=== PATIENT | female | born 1985 | race American Indian/Alaskan Native ===

== ENCOUNTER 2019-06-18 16:36 | Emergency (ER) | payer SELFPAY ==
[2019-06-18 17:26] VITALS: BP 118/89
--- NOTE | 2019-06-18 17:26 | Emergency Department Report ---
Blank Doc - Documentation Documentation: 33-year-old female that presents with URI symptoms. This initial assessment/diagnostic orders/clinical plan/treatment(s) is/are subject to change based on patient's health status, clinical progression and re- assessment by fellow clinical providers in the ED. Further treatment and workup at subsequent clinical providers discretion. Patient/guardians urged not to elope from the ED as their condition may be serious if not clinically assessed and managed. Initial orders include: 1- Patient sent to [facility] for further evaluation and treatment 2- CXR
== END 2019-06-18 22:11 | disposition left against medical advice (07) ==
LOC: ED 16:36
DX: R05 Cough (principal); Z53.21 Procedure and treatment not carried out due to patient leaving prior to being seen by health care provider

== ENCOUNTER 2019-08-08 07:10 | Emergency (ER) | payer SELFPAY ==
[2019-08-08 07:18] VITALS: BP 131/88
[2019-08-08] MEDS ORDERED: MORPHINE 4 MG/1 ML INJ IV ONE (08:38)
[2019-08-08] MEDS ORDERED: SODIUM CHLORIDE 0.9% 1000 ML 1,000 ML IV ONE (08:38)
[2019-08-08] MEDS ORDERED: ONDANSETRON 4 MG/2 ML INJ IV ONE (08:38)
--- NOTE | 2019-08-08 08:42 | Emergency Department Report ---
ED Abdominal Pain HPI - General Chief Complaint: Abdominal Pain Stated Complaint: LT SIDE PAIN Time Seen by Provider: 08/08/19 08:36 Source: patient Mode of arrival: Ambulatory Limitations: No Limitations - History of Present Illness Initial Comments: This is a 33-year-old female nontoxic, well nourished in appearance, no acute signs of distress presents to the ED with c/o of left flank pain with radiation to left sided abdominal area. Patient denies any n/v. Patient describes flank pain as cramping and aching with level of 3/10 diffuse. Patient denies chest pain, short of breath, fever, chills, headache, stiff neck, numbness or tingling. Patient stated has some diarrhea. Patient denies any recent travels. Patient denies any allergies or PMH. MD Complaint: flank pain -: days(s) Location: L flank Radiation: LUQ Migration to: no migration Severity: mild Severity scale (0 -10): 3 Quality: aching Consistency: constant Improves With: nothing Worsens With: nothing Associated Symptoms: denies other symptoms. denies: nausea, vomiting, diarrhea, fever, chills, constipation, dysuria, hematemesis, hematochezia, melena, hematuria, anorexia, syncope - Related Data Previous Rx's Medication Instructions Recorded Last Taken Type Acetaminophen/Codeine [Tylenol 1 tab PO Q6H PRN #12 tab 08/08/19 Unknown Rx /Codeine # 3 tab] Ondansetron [Zofran Odt] 4 mg PO Q8HR PRN #20 tab.rapdis 08/08/19 Unknown Rx Allergies Allergy/AdvReac Type Severity Reaction Status Date / Time No Known Allergies Allergy Unverified 06/18/19 16:41 ED Review of Systems ROS: Stated complaint: LT SIDE PAIN Other details as noted in HPI Constitutional: denies: chills, fever Eyes: denies: eye pain, eye discharge, vision change ENT: denies: ear pain, throat pain Respiratory: denies: cough, shortness of breath, wheezing Cardiovascular: denies: chest pain, palpitations Endocrine: no symptoms reported Gastrointestinal: abdominal pain, diarrhea. denies: nausea, vomiting, constipation, hematemesis Genitourinary: denies: urgency, dysuria, discharge Musculoskeletal: denies: back pain, joint swelling, arthralgia Skin: denies: rash, lesions Neurological: denies: headache, weakness, paresthesias Psychiatric: denies: anxiety, depression Hematological/Lymphatic: denies: easy bleeding, easy bruising ED Past Medical Hx - Past Medical History Previous Medical History?: No - Surgical History Past Surgical History?: No - Social History Smoking Status: Current Every Day Smoker Substance Use Type: None - Medications Home Medications: Home Medications Medication Instructions Recorded Confirmed Last Taken Type Acetaminophen/Codeine [Tylenol 1 tab PO Q6H PRN #12 tab 08/08/19 Unknown Rx /Codeine # 3 tab] Ondansetron [Zofran Odt] 4 mg PO Q8HR PRN #20 tab.rapdis 08/08/19 Unknown Rx ED Physical Exam - General Limitations: No Limitations General appearance: alert, in no apparent distress - Head Head exam: Present: atraumatic, normocephalic - Neck Neck exam: Present: normal inspection, full ROM. Absent: tenderness, lymphadenopathy - Respiratory Respiratory exam: Present: normal lung sounds bilaterally. Absent: respiratory distress, wheezes, rales, rhonchi, stridor, chest wall tenderness, accessory muscle use, decreased breath sounds, prolonged expiratory - Cardiovascular Cardiovascular Exam: Present: regular rate, normal rhythm, normal heart sounds. Absent: irregular rhythm, systolic murmur, diastolic murmur, rubs, gallop - GI/Abdominal GI/Abdominal exam: Present: soft, tenderness (LUQ), normal bowel sounds. Absent: distended, guarding, rebound, rigid, diminished bowel sounds, hyperactive bowel sounds, hypoactive bowel sounds, organomegaly, mass, bruit, pulsatile mass, hernia - Extremities Exam Extremities exam: Present: normal inspection, full ROM - Back Exam Back exam: Present: normal inspection, full ROM, CVA tenderness (L). Absent: tenderness, CVA tenderness (R), muscle spasm, paraspinal tenderness, vertebral tenderness, rash noted - Neurological Exam Neurological exam: Present: alert, oriented X3, normal gait - Psychiatric Psychiatric exam: Present: normal affect, normal mood - Skin Skin exam: Present: warm, dry, intact, normal color. Absent: rash ED Course Vital Signs 08/08/19 07:17 Temperature 98.4 F Pulse Rate 101 H Respiratory 18 Rate Blood Pressure 131/88 O2 Sat by Pulse 100 Oximetry - Reevaluation(s) Reevaluation #1: 08/08/19 08:45 Patient is speaking in full sentences with no signs of distress noted. ED Medical Decision Making - Lab Data Result diagrams: 08/08/19 08:43 08/08/19 08:43 - Medical Decision Making This is a 33-year-old female that presents with abdominal pain with ovarian cyst. Patient is stable and was examined by me. Negative signs of symptoms of appendicitis. Labs obtained. UA obtained. CT of abdomen obtained and dictated by the radiologist. Patient is notified of the report with no questions noted by the patient. Vital signs are stable prior to discharge. Patient received medical treatment in the ED which patient stated symptoms has resovled and subsided. Was instructed note to operate any machinery due to possible drowsiness and stated someone will drive the patient home. A by mouth challenge has been obtained and patient tolerated well with no nausea vomiting. Patient was also instructed to Follow-up with a primary care doctor in 3-5 days or if symptoms worsen and continue return to emergency room as soon as possible. At time of discharge, the patient does not seem toxic or ill in appearance. No acute signs of distress noted. Patient agrees to discharge treatment plan of care. No further questions noted by the patient. - Differential Diagnosis bowel obstruction, kidney stone, gastritis Critical care attestation.: If time is entered above; I have spent that time in minutes in the direct care of this critically ill patient, excluding procedure time. ED Disposition Clinical Impression: Ovarian mass Abdominal pain Qualifiers: Abdominal location: left upper quadrant Qualified Code(s): R10.12 - Left upper quadrant pain Disposition: DC-01 TO HOME OR SELFCARE Is pt being admited?: No Does the pt Need Aspirin: No Condition: Stable Instructions: Abdominal Pain (ED) Additional Instructions: Follow-up with a primary care and OBGYN doctor in 3-5 days or if symptoms worsen and continue return to emergency room as soon as possible. Prescriptions: Acetaminophen/Codeine [Tylenol /Codeine # 3 tab] 1 tab PO Q6H PRN #12 tab PRN Reason: Pain , Severe (7-10) Ondansetron [Zofran Odt] 4 mg PO Q8HR PRN #20 tab.rapdis PRN Reason: nausea Referrals: PRIMARY MD DENISE [Primary Care Provider] - 3-5 Days TYLER SPIVEY MD [Staff Physician] - 3-5 Days LIZBETH BROWN MD [Staff Physician] - 3-5 Days [facility] [Provider Group] - 3-5 Days Forms: Work/School Release Form(ED)
[2019-08-08 09:09] LABS: Basophils # (Auto) 0.1 K/mm3 (0.0-0.1); Basophils % (Auto) 0.7 % (0.0-1.8); Eosinophils % (Auto) 0.2 % (0.0-4.3); Hematocrit 39.4 % (30.3-42.9); Hemoglobin 13.2 gm/dl (10.1-14.3); Lymphocytes # (Auto) 2.2 K/mm3 (1.2-5.4); Lymphocytes % (Auto) 28.9 % (13.4-35.0); Mean Corpuscular HGB Conc 34 % (30-34); Mean Corpuscular Volume 97 fl (79-97); Monocytes # (Auto) 0.5 K/mm3 (0.0-0.8); Platelet Count 344 K/mm3 (140-440); Red Blood Count 4.06 M/mm3 (3.65-5.03); Red Cell Distribution Width 13.5 % (13.2-15.2)
[2019-08-08 09:25] LABS: Bacteria,Urine 1+ /HPF (Negative); Bilirubin,Urine NEG (Negative); Blood,Urine MOD (Negative); Color,Urine Yellow (Yellow); Mucus,Urine FEW /HPF; Protein,Urine <15 mg/dL mg/dL (Negative); Urobilinogen,Urine < 2.0 mg/dL (<2.0)
[2019-08-08 09:35] LABS: Alanine Aminotransferase 22 units/L (7-56); Albumin 4.6 g/dL (3.9-5); BUN/Creatinine Ratio 23; Blood Urea Nitrogen 9 mg/dL (7-17); Hemolysis Index 9
--- NOTE | 2019-08-08 10:41 | Cat Scan Report ---
CT ABDOMEN AND PELVIS WITHOUT CONTRAST HISTORY: Flank and abdominal pain. COMPARISON: None TECHNIQUE: Routine abdominal and pelvic CT exam performed without contrast. Lack of intravenous cont rast limits evaluation of the vascular and solid organs.. All CT scans at this location are performed using CT dose reduction for ALARA by means of automated exposure control. FINDINGS: CT ABDOMEN: Lung Bases: Clear. Liver: Normal. Biliary: Normal gallbladder and bile ducts. Spleen: Normal. Pancreas: Normal. Adrenals: Normal. Kidneys: Normal. No urinary calculus. The renal collecting systems and ureters are nondilated. Lymphatics: No lymphadenopathy. Vasculature: No significant abnormality. Bowel/Peritoneum: No significant abnormality. No free air. No free fluid. Normal appendix. CT PELVIC: : An enlarged left ovary measures 4.7 x 4.1 x 4.0 cm. The margins are indistinct and there is a hyp odense center. Single 5 mm calcification in the ovary. The uterus and right ovary are normal. Mild fr ee fluid in the pelvis. Normal rectum and sigmoid colon. Lymphatics: No lymphadenopathy. Osseous Structures: No aggressive appearing osseous lesions. Additional Findings: None IMPRESSION: 1. Left ovarian mass/cyst. The differential includes benign cyst and both have benign and malignant n eoplasms. 2. Normal uterus and right ovary. 3. Normal upper abdomen. Signer Name: Harvinder Roberson MD Signed: 08/08/2019 10:36 AM Workstation Name: [id number]
== END 2019-08-08 11:36 | disposition home or self-care (01) ==
LOC: ED 07:10
DX: N83.202 Unspecified ovarian cyst, left side (principal); R19.7 Diarrhea, unspecified; F17.200 Nicotine dependence, unspecified, uncomplicated; Z79.899 Other long term (current) drug therapy
CPT/HCPCS: 36415; 74176; 80053; 81001; 83690; 84703; 85025; 96361; 96374; 96375; 99284; J2270; J2405; J7030

== ENCOUNTER 2019-11-29 13:02 | Emergency (ER) | payer MEDICAID, OTHER ==
[2019-11-29] MEDS ORDERED: TETANUS,DIPH,PERTUSS(ACELL) VACCINE 0.5 ML SYRINGE IM ONE (14:37)
--- NOTE | 2019-11-29 14:53 | Emergency Department Report ---
ED Laceration HPI - HPI Chief Complaint: Laceration/Recheck/Suture Stated Complaint: LEFT HAND INJURY Time Seen by Provider: 11/29/19 14:00 Location: Upper Extremity Severity: mild Tetanus Status: Not up to Date Laceration Symptoms: Yes Pain, No Foreign Body Sensation, No Numbness, No Weakness ED Review of Systems ROS: Stated complaint: LEFT HAND INJURY Other details as noted in HPI Comment: All other systems reviewed and negative ED Past Medical Hx - Past Medical History Previous Medical History?: No - Surgical History Past Surgical History?: No - Social History Smoking Status: Current Every Day Smoker - Medications Home Medications: Home Medications Medication Instructions Recorded Confirmed Last Taken Type Acetaminophen/Codeine [Tylenol 1 tab PO Q6H PRN #12 tab 08/08/19 Unknown Rx /Codeine # 3 tab] Ondansetron [Zofran Odt] 4 mg PO Q8HR PRN #20 tab.rapdis 08/08/19 Unknown Rx cephALEXin [Keflex] 500 mg PO Q12HR #10 cap 11/29/19 Unknown Rx Laceration Physical Exam - Exam General: Vital signs noted. No distress. Alert and acting appropriately. Laceration Location: Upper Extremity Laceration Exam: Yes Normal Distal CMS, No Foreign Body, No Exposed Tendon, Vess el, or Nerve, No Tendon Injury Critical care attestation.: If time is entered above; I have spent that time in minutes in the direct care of this critically ill patient, excluding procedure time. ED Disposition Clinical Impression: Laceration of hand, Abrasion of hand Disposition: DC-01 TO HOME OR SELFCARE Is pt being admited?: No Does the pt Need Aspirin: No Instructions: Abrasion (ED) Additional Instructions: Make sure to follow up with the primary care physician as discussed. Take all your medications as you've been prescribed. If you have any worsening symptoms or develop new symptoms please return to ED immediately. Prescriptions: cephALEXin [Keflex] 500 mg PO Q12HR #10 cap Referrals: NATY CABRERA MD [Primary Care Provider] - 3-5 Days [facility] [Outside] - 3-5 Days [facility] [Outside] - 3-5 Days Forms: Work/School Release Form(ED) Time of Disposition: 15:24
[2019-11-29 17:13] VITALS: BP 139/93
== END 2019-11-29 17:12 | disposition home or self-care (01) ==
LOC: ED 13:02
DX: S61.412A Laceration without foreign body of left hand, initial encounter (principal); F17.200 Nicotine dependence, unspecified, uncomplicated; X58.XXXA Exposure to other specified factors, initial encounter; Y93.89 Activity, other specified; Y92.89 Other specified places as the place of occurrence of the external cause; Y99.8 Other external cause status
CPT/HCPCS: 90471; 90715; 99281

== ENCOUNTER 2020-04-18 12:59 | Emergency (ER) | payer SELFPAY ==
[2020-04-18 13:09] VITALS: BP 144/94
--- NOTE | 2020-04-18 14:49 | XRay Report ---
CHEST 2 VIEWS INDICATION: cough. COMPARISON: None FINDINGS: Support devices: None. Heart: Within normal limits. Lungs/pleura: No acute air space or interstitial disease. No pneumothorax. Additional findings: None. IMPRESSION: No acute findings. Signer Name: Srinivas Palomares Jr, MD Signed: 04/18/2020 2:44 PM Workstation Name: [id number]
--- NOTE | 2020-04-18 14:53 | Emergency Department Report ---
ED General Adult HPI - General Chief complaint: Upper Respiratory Infection Stated complaint: CHEST COLD Time Seen by Provider: 04/18/20 14:00 Source: patient Mode of arrival: Ambulatory Limitations: No Limitations - History of Present Illness Initial comments: 34-year-old -[place] female patient without significant past medical history presents with complaints of productive cough X 2 days. Patient also reports some body aches and congestion, but denies any chest pain, shortness of breath, nausea/vomiting/diarrhea, abdominal pain, or fever/chills/sweats. She states she has not tried any [id number]-cce-[id number] medication for symptoms. [place] and has high risk of COVID19 contact - Related Data Previous Rx's Medication Instructions Recorded Last Taken Type Acetaminophen/Codeine [Tylenol 1 tab PO Q6H PRN #12 tab 08/08/19 Unknown Rx /Codeine # 3 tab] Ondansetron [Zofran Odt] 4 mg PO Q8HR PRN #20 tab.rapdis 08/08/19 Unknown Rx cephALEXin [Keflex] 500 mg PO Q12HR #10 cap 11/29/19 Unknown Rx Erythromycin [Erythromycin Ophth 1 strip OS QID 5 Days #1 tube 01/12/20 Unknown Rx Oint] Allergies Allergy/AdvReac Type Severity Reaction Status Date / Time grape Allergy Shortness Verified 11/29/19 13:03 of Breath ED Review of Systems ROS: Stated complaint: CHEST COLD Other details as noted in HPI Constitutional: other (Body aches). denies: chills, fever, malaise ENT: denies: throat pain Respiratory: cough. denies: shortness of breath, SOB with exertion Cardiovascular: denies: chest pain Endocrine: denies: excessive sweating Gastrointestinal: denies: abdominal pain, nausea, vomiting, diarrhea Musculoskeletal: denies: back pain Skin: denies: rash, lesions Neurological: denies: weakness Hematological/Lymphatic: denies: swollen glands ED Past Medical Hx - Past Medical History Previous Medical History?: No - Surgical History Past Surgical History?: No - Social History Smoking Status: Current Every Day Smoker Substance Use Type: None - Medications Home Medications: Home Medications Medication Instructions Recorded Confirmed Last Taken Type Acetaminophen/Codeine [Tylenol 1 tab PO Q6H PRN #12 tab 08/08/19 Unknown Rx /Codeine # 3 tab] Ondansetron [Zofran Odt] 4 mg PO Q8HR PRN #20 tab.rapdis 08/08/19 Unknown Rx cephALEXin [Keflex] 500 mg PO Q12HR #10 cap 11/29/19 Unknown Rx Erythromycin [Erythromycin Ophth 1 strip OS QID 5 Days #1 tube 01/12/20 Unknown Rx Oint] ED Physical Exam - General Limitations: No Limitations General appearance: alert, in no apparent distress - Head Head exam: Present: atraumatic, normocephalic - Eye Eye exam: Present: normal appearance. Absent: scleral icterus - ENT ENT exam: Present: normal exam, normal orophraynx, mucous membranes moist - Neck Neck exam: Present: normal inspection, full ROM - Respiratory Respiratory exam: Present: normal lung sounds bilaterally - Cardiovascular Cardiovascular Exam: Present: regular rate, normal rhythm. Absent: systolic murmur, diastolic murmur, rubs, gallop - GI/Abdominal GI/Abdominal exam: Present: soft. Absent: distended, tenderness, guarding, rebound, rigid - Back Exam Back exam: Present: normal inspection - Neurological Exam Neurological exam: Present: alert, oriented X3 - Psychiatric Psychiatric exam: Present: normal affect, normal mood - Skin Skin exam: Present: warm, dry, intact, normal color. Absent: rash, cyanosis, diaphoretic, petechiae, ecchymosis ED Course Vital Signs 04/18/20 13:06 Temperature 97.9 F Pulse Rate 92 H Respiratory 16 Rate Blood Pressure 144/94 O2 Sat by Pulse 97 Oximetry ED Medical Decision Making - Radiology Data Radiology results: report reviewed CHEST 2 VIEWS INDICATION: cough. COMPARISON: None FINDINGS: Support devices: None. Heart: Within normal limits. Lungs/pleura: No acute air space or interstitial disease. No pneumothorax. Additional findings: None. IMPRESSION: No acute findings. - Medical Decision Making Patient here with productive cough x2 days. Vitals are normal, however [place] and is at increased risk of COVID-19 contact. Chest x- ray is negative for any acute abnormalities. Her lungs are clear on exam and she is well-appearing and stable for discharge home. Recommend patient get outpatient COVID testing and self quarantine until her results are back. Patient was provided with COVID testing facility list. Also recommend follow-up with primary care. Strict return precautions were discussed in detail patient verbalized understanding. OTC medications for symptomatic treatment recommended along with vitamin C and zinc Critical care attestation.: If time is entered above; I have spent that time in minutes in the direct care of this critically ill patient, excluding procedure time. ED Disposition Clinical Impression: Cough, Common cold virus Disposition: DC-01 TO HOME OR SELFCARE Is pt being admited?: No Condition: Stable Instructions: Cold Symptoms (ED), COVID-19 Referrals: PRIMARY CARE, [Primary Care Provider] - 3-5 Days Forms: Work/School Release Form(ED)
== END 2020-04-18 15:59 | disposition home or self-care (01) ==
LOC: ED 12:59
DX: J00 Acute nasopharyngitis [common cold] (principal); F17.200 Nicotine dependence, unspecified, uncomplicated; Z79.899 Other long term (current) drug therapy; Z91.018 Allergy to other foods
CPT/HCPCS: 71046; 99283

== ENCOUNTER 2020-08-05 10:14 | Emergency (ER) | payer SELFPAY ==
[2020-08-05 10:51] VITALS: BP 151/95
--- NOTE | 2020-08-05 12:01 | Emergency Department Report ---
ED ENT HPI - General Chief complaint: Dental/Oral Stated complaint: LEFT EYE IRRITATION Time Seen by Provider: 08/05/20 11:53 Source: patient Mode of arrival: Ambulatory Limitations: No Limitations - History of Present Illness Initial comments: 34-year-old F [place] female past medical history of tobacco abuse presents emerge department complaining of a near 1 week history of progressively worsening since sinus infection and dental pain of an unknown etiology which has been causing her some issues sleeping the last couple days. She reports a dull throbbing pain which is spontaneous with no known provocative factors. She reports no fevers, chills, sweats no shortness of breath no hemoptysis no hematemesis no diarrhea no constipation Severity: moderate Quality: dull Consistency: constant Improves with: none Worsens with: none Context- Dental: poor dental care Associated Symptoms: toothache, sore throat - Related Data Previous Rx's Medication Instructions Recorded Last Taken Type Acetaminophen/Codeine [Tylenol 1 tab PO Q6H PRN #12 tab 08/08/19 Unknown Rx /Codeine # 3 tab] Ondansetron [Zofran Odt] 4 mg PO Q8HR PRN #20 tab.rapdis 08/08/19 Unknown Rx cephALEXin [Keflex] 500 mg PO Q12HR #10 cap 11/29/19 Unknown Rx Erythromycin [Erythromycin Ophth 1 strip OS QID 5 Days #1 tube 01/12/20 Unknown Rx Oint] Amoxicillin/Potassium Clav 1 each PO BID #20 tablet 08/05/20 Unknown Rx [Augmentin 875-125 Tablet] Fluticasone [Flonase] 1 spray NS QDAY #7 bottle 08/05/20 Unknown Rx Ketorolac [Toradol] 10 mg PO Q6H PRN #20 tablet 08/05/20 Unknown Rx Allergies Allergy/AdvReac Type Severity Reaction Status Date / Time grape Allergy Shortness Verified 11/29/19 13:03 of Breath ED Dental HPI - General Chief complaint: Dental/Oral Stated complaint: LEFT EYE IRRITATION Time Seen by Provider: 08/05/20 11:53 Source: patient Mode of arrival: Ambulatory Limitations: No Limitations - Related Data Previous Rx's Medication Instructions Recorded Last Taken Type Acetaminophen/Codeine [Tylenol 1 tab PO Q6H PRN #12 tab 08/08/19 Unknown Rx /Codeine # 3 tab] Ondansetron [Zofran Odt] 4 mg PO Q8HR PRN #20 tab.rapdis 08/08/19 Unknown Rx cephALEXin [Keflex] 500 mg PO Q12HR #10 cap 11/29/19 Unknown Rx Erythromycin [Erythromycin Ophth 1 strip OS QID 5 Days #1 tube 01/12/20 Unknown Rx Oint] Amoxicillin/Potassium Clav 1 each PO BID #20 tablet 08/05/20 Unknown Rx [Augmentin 875-125 Tablet] Fluticasone [Flonase] 1 spray NS QDAY #7 bottle 08/05/20 Unknown Rx Ketorolac [Toradol] 10 mg PO Q6H PRN #20 tablet 08/05/20 Unknown Rx Allergies Allergy/AdvReac Type Severity Reaction Status Date / Time grape Allergy Shortness Verified 11/29/19 13:03 of Breath ED Review of Systems ROS: Stated complaint: LEFT EYE IRRITATION Other details as noted in HPI Comment: All other systems reviewed and negative ED Past Medical Hx - Past Medical History Previous Medical History?: No - Surgical History Past Surgical History?: No - Social History Smoking Status: Current Every Day Smoker Substance Use Type: None - Medications Home Medications: Home Medications Medication Instructions Recorded Confirmed Last Taken Type Acetaminophen/Codeine [Tylenol 1 tab PO Q6H PRN #12 tab 08/08/19 Unknown Rx /Codeine # 3 tab] Ondansetron [Zofran Odt] 4 mg PO Q8HR PRN #20 tab.rapdis 08/08/19 Unknown Rx cephALEXin [Keflex] 500 mg PO Q12HR #10 cap 11/29/19 Unknown Rx Erythromycin [Erythromycin Ophth 1 strip OS QID 5 Days #1 tube 01/12/20 Unknown Rx Oint] Amoxicillin/Potassium Clav 1 each PO BID #20 tablet 08/05/20 Unknown Rx [Augmentin 875-125 Tablet] Fluticasone [Flonase] 1 spray NS QDAY #7 bottle 08/05/20 Unknown Rx Ketorolac [Toradol] 10 mg PO Q6H PRN #20 tablet 08/05/20 Unknown Rx ED Physical Exam - General Limitations: No Limitations General appearance: alert, in no apparent distress - Head Head exam: Present: atraumatic, normocephalic - Eye Eye exam: Present: normal appearance, PERRL, EOMI Pupils: Present: normal accommodation - ENT ENT exam: Present: normal exam, mucous membranes moist - Neck Neck exam: Present: normal inspection, full ROM - Respiratory Respiratory exam: Present: normal lung sounds bilaterally. Absent: respiratory distress, wheezes, rales, chest wall tenderness, accessory muscle use - Cardiovascular Cardiovascular Exam: Present: regular rate, normal rhythm. Absent: systolic murmur, diastolic murmur, rubs, gallop - GI/Abdominal GI/Abdominal exam: Present: soft, normal bowel sounds. Absent: tenderness, guarding - Extremities Exam Extremities exam: Present: normal inspection - Back Exam Back exam: Present: normal inspection - Neurological Exam Neurological exam: Present: alert, oriented X3 - Psychiatric Psychiatric exam: Present: normal affect, normal mood - Skin Skin exam: Present: warm, dry, intact, normal color. Absent: rash ED Course Vital Signs 08/05/20 10:49 Temperature 98.0 F Pulse Rate 85 Respiratory 20 Rate Blood Pressure 151/95 O2 Sat by Pulse 100 Oximetry Critical care attestation.: If time is entered above; I have spent that time in minutes in the direct care of this critically ill patient, excluding procedure time. ED Disposition Clinical Impression: Dentalgia, Sinusitis Disposition: DC-01 TO HOME OR SELFCARE Is pt being admited?: No Does the pt Need Aspirin: No Condition: Stable Instructions: Sinusitis, Adult, [id number], Sinusitis, Adult, Diet and Dental Disease Prescriptions: Amoxicillin/Potassium Clav [Augmentin 875-125 Tablet] 1 each PO BID #20 tablet Fluticasone [Flonase] 1 spray NS QDAY #7 bottle Ketorolac [Toradol] 10 mg PO Q6H PRN #20 tablet PRN Reason: Pain Referrals: PRIMARY CARE,MD [Primary Care Provider] - 3-5 Days [facility] [Provider Group] - 3-5 Days
== END 2020-08-05 12:33 | disposition home or self-care (01) ==
LOC: ED 10:14
DX: J32.9 Chronic sinusitis, unspecified (principal); K08.89 Other specified disorders of teeth and supporting structures; F17.200 Nicotine dependence, unspecified, uncomplicated; Z79.899 Other long term (current) drug therapy; Z88.8 Allergy status to other drugs, medicaments and biological substances
CPT/HCPCS: 99282

== ENCOUNTER 2020-12-07 11:04 | Emergency (ER) | payer SELFPAY ==
[2020-12-07 11:13] VITALS: BP 147/101
--- NOTE | 2020-12-07 11:44 | Emergency Department Report ---
ED Extremity Problem HPI - General Chief complaint: Extremity Injury, Lower Stated complaint: R KNEE PAIN Time Seen by Provider: 12/07/20 11:37 Source: patient Mode of arrival: Ambulatory Limitations: No Limitations - History of Present Illness Initial comments: Is a pleasant 35-year-old female who presents to the ER with a chief complaint of right knee pain. Patient reports 1 week ago she almost fell and kenia her knee and has been having pain since. She denies any injury since but reports yesterday while at work she had having increasing pain especially when she ambulates. She denies any edema, fever, chills, night sweats, headache, dizziness, or vision, nausea,, diarrhea, chest pain or shortness of breath, weakness or any other associated symptoms. - Related Data Previous Rx's Medication Instructions Recorded Last Taken Type Acetaminophen/Codeine [Tylenol 1 tab PO Q6H PRN #12 tab 08/08/19 Unknown Rx /Codeine # 3 tab] Ondansetron [Zofran Odt] 4 mg PO Q8HR PRN #20 tab.rapdis 08/08/19 Unknown Rx cephALEXin [Keflex] 500 mg PO Q12HR #10 cap 11/29/19 Unknown Rx Erythromycin [Erythromycin Ophth 1 strip OS QID 5 Days #1 tube 01/12/20 Unknown Rx Oint] Amoxicillin/Potassium Clav 1 each PO BID #20 tablet 08/05/20 Unknown Rx [Augmentin 875-125 Tablet] Fluticasone [Flonase] 1 spray NS QDAY #7 bottle 08/05/20 Unknown Rx Ketorolac [Toradol] 10 mg PO Q6H PRN #20 tablet 08/05/20 Unknown Rx Naproxen 500 mg PO BID #20 tablet 12/07/20 Unknown Rx Allergies Allergy/AdvReac Type Severity Reaction Status Date / Time grape Allergy Shortness Verified 11/29/19 13:03 of Breath ED Review of Systems ROS: Stated complaint: R KNEE PAIN Other details as noted in HPI Comment: All other systems reviewed and negative Constitutional: denies: chills, fever Eyes: denies: eye pain, eye discharge, vision change ENT: denies: ear pain, throat pain Respiratory: denies: cough, shortness of breath, wheezing Cardiovascular: denies: chest pain, palpitations Endocrine: no symptoms reported Gastrointestinal: denies: abdominal pain, nausea, diarrhea Genitourinary: denies: urgency, dysuria, discharge Musculoskeletal: as per HPI, arthralgia. denies: back pain, joint swelling Skin: denies: rash, lesions Neurological: denies: headache, weakness, paresthesias Psychiatric: denies: anxiety, depression Hematological/Lymphatic: denies: easy bleeding, easy bruising ED Past Medical Hx - Past Medical History Previous Medical History?: No - Surgical History Past Surgical History?: No - Social History Smoking Status: Current Every Day Smoker Substance Use Type: Alcohol - Medications Home Medications: Home Medications Medication Instructions Recorded Confirmed Last Taken Type Acetaminophen/Codeine [Tylenol 1 tab PO Q6H PRN #12 tab 08/08/19 Unknown Rx /Codeine # 3 tab] Ondansetron [Zofran Odt] 4 mg PO Q8HR PRN #20 tab.rapdis 08/08/19 Unknown Rx cephALEXin [Keflex] 500 mg PO Q12HR #10 cap 11/29/19 Unknown Rx Erythromycin [Erythromycin Ophth 1 strip OS QID 5 Days #1 tube 01/12/20 Unknown Rx Oint] Amoxicillin/Potassium Clav 1 each PO BID #20 tablet 08/05/20 Unknown Rx [Augmentin 875-125 Tablet] Fluticasone [Flonase] 1 spray NS QDAY #7 bottle 08/05/20 Unknown Rx Ketorolac [Toradol] 10 mg PO Q6H PRN #20 tablet 08/05/20 Unknown Rx Naproxen 500 mg PO BID #20 tablet 12/07/20 Unknown Rx ED Physical Exam - General Limitations: No Limitations General appearance: alert, in no apparent distress - Head Head exam: Present: atraumatic, normocephalic - Eye Eye exam: Present: normal appearance, PERRL, EOMI Pupils: Present: normal accommodation - ENT ENT exam: Present: normal exam, normal orophraynx, mucous membranes moist - Neck Neck exam: Present: normal inspection, full ROM. Absent: tenderness, meningismus - Respiratory Respiratory exam: Present: normal lung sounds bilaterally. Absent: respiratory distress, wheezes, rales, rhonchi, stridor - Cardiovascular Cardiovascular Exam: Present: regular rate, normal rhythm, normal heart sounds. Absent: systolic murmur, diastolic murmur, rubs, gallop - GI/Abdominal GI/Abdominal exam: Present: soft, normal bowel sounds. Absent: distended, tenderness, guarding, rebound, rigid - Extremities Exam Extremities exam: Present: normal inspection, full ROM, tenderness (Pain to the anterior right knee, no deformity, no effusion. Negative varus/valgus strain, negative anterior drawer sign, negatie des sign bilaterally, normal DP/PT pulses ), normal capillary refill. Absent: calf tenderness - Back Exam Back exam: Present: normal inspection, full ROM. Absent: tenderness, CVA tenderness (R), CVA tenderness (L) - Neurological Exam Neurological exam: Present: alert, oriented X3, normal gait - Psychiatric Psychiatric exam: Present: normal affect, normal mood - Skin Skin exam: Present: warm, dry, intact, normal color. Absent: rash ED Course Vital Signs 12/07/20 11:07 Temperature 98.6 F Pulse Rate 104 H Respiratory 18 Rate Blood Pressure 147/101 O2 Sat by Pulse 97 Oximetry - Reevaluation(s) Reevaluation #1: 12/07/20 11:44 She is a low risk by Wells criteria, no posterior calf tenderness, negative Homans' sign bilaterally and normal DP and PT pulses making this patient for DVT unlikely at this time. I did order an x-ray due to her bony tenderness on the anterior knee. She had full active range of motion and neurovascular exam was unremarkable. ED Medical Decision Making - Radiology Data Radiology results: report reviewed [address] [address] XRay Report Signed Patient: GERARD DASH MR# : [id number] : 1985 Acct:[id number] Age/Sex: 35 / F ADM Date: 12/07/20 Loc: ED Attending Dr: Ordering Physician: PAT LEONG Date of Service: 12/07/20 Procedure(s): XR knee 3V RT Accession Number(s): [id number] cc: PAT LEONG Fluoro Time In Minutes: RIGHT KNEE 3 VIEWS 1154 INDICATION: pain after fall COMPARISON: None available. FINDINGS: No fractures or dislocations are seen. Small density on 2 views only near the tibia is probably artifactual. No definite joint effusion is seen. Signer Name: Sergo Salvador MD Signed: 12/07/2020 12:36 PM Workstation Name: [id number] Transcribed By: GJ Dictated By: Sergo Salvador MD Electronically Authenticated By: Sergo Salvador MD Signed Date/Time: 12/07/20 1236 DD/ 1234 - Medical Decision Making X-ray is unremarkable. Patient is a low risk by Wells criteria for DVT and no posterior calf tenderness and a negative Homans' sign making this unlikely. We will treat the patient with anti-inflammatories and outpatient follow-up with orthopedics. She was instructed to return to the ER with any change or worsening symptoms. She verbalized understand the diagnosis, treatment plan and follow-up instructions and all her questions were answered. - Differential Diagnosis Strain, sprain, fracture Critical care attestation.: If time is entered above; I have spent that time in minutes in the direct care of this critically ill patient, excluding procedure time. ED Disposition Clinical Impression: Right knee sprain Qualifiers: Encounter type: initial encounter Involved ligament of knee: other ligament Qualified Code(s): S83.8X1A - Sprain of other specified parts of right knee, initial encounter Disposition: DC-01 TO HOME OR SELFCARE Is pt being admited?: No Condition: Stable Instructions: Knee Sprain, Adult, [id number] Prescriptions: Naproxen 500 mg PO BID #20 tablet Referrals: MECHELLE DRAKE MD [Staff Physician] - 3-5 Days Forms: Work/School Release Form(ED) Time of Disposition: 12:54
--- NOTE | 2020-12-07 12:41 | XRay Report ---
RIGHT KNEE 3 VIEWS 1154 INDICATION: pain after fall COMPARISON: None available. FINDINGS: No fractures or dislocations are seen. Small density on 2 views only near the tibia is prob ably artifactual. No definite joint effusion is seen. Signer Name: Sergo Salvador MD Signed: 12/07/2020 12:36 PM Workstation Name: [id number]
== END 2020-12-07 13:55 | disposition home or self-care (01) ==
LOC: ED 11:04
DX: S83.8X1A Sprain of other specified parts of right knee, initial encounter (principal); F17.200 Nicotine dependence, unspecified, uncomplicated; Z79.899 Other long term (current) drug therapy; Z91.018 Allergy to other foods; W18.30XA Fall on same level, unspecified, initial encounter; Y93.89 Activity, other specified; Y92.89 Other specified places as the place of occurrence of the external cause; Y99.8 Other external cause status

== ENCOUNTER 2021-04-24 15:26 | Emergency (ER) | payer OTHER ==
[2021-04-24 17:18] VITALS: BP 137/81
--- NOTE | 2021-04-24 21:43 | Emergency Department Report ---
- General Chief Complaint: Dyspnea/Respdistress Stated Complaint: NOT FEELING WELL, COLD FOR COUPLE WKS PUI?: No Time Seen by Provider: 04/24/21 21:38 Source: patient Mode of arrival: Ambulatory Limitations: No Limitations - History of Present Illness Initial Comments: CC: I think I need an inhaler. HPI: This is a 35-year-old female with history of tobacco dependence who presents with cough for 3 weeks. She was exposed to rain and a sick contact. Productive cough with yellow sputum. She also has had intermittent wheezing. She does use inhaler on previous occasion for bronchitis. She denies fever, headache, sore throat, body aches, loss of taste or smell. MD Complaint: cough, nasal congestion -: Gradual, week(s) (3 weeks) Severity: mild Consistency: constant Improves With: nothing Worsens With: nothing Associated Symptoms: other (Nasal congestion, wheezing) - Related Data Previous Rx's Medication Instructions Recorded Last Taken Type Acetaminophen/Codeine [Tylenol 1 tab PO Q6H PRN #12 tab 08/08/19 Unknown Rx /Codeine # 3 tab] Ondansetron [Zofran Odt] 4 mg PO Q8HR PRN #20 tab.rapdis 08/08/19 Unknown Rx cephALEXin [Keflex] 500 mg PO Q12HR #10 cap 11/29/19 Unknown Rx Erythromycin [Erythromycin Ophth 1 strip OS QID 5 Days #1 tube 01/12/20 Unknown Rx Oint] Amoxicillin/Potassium Clav 1 each PO BID #20 tablet 08/05/20 Unknown Rx [Augmentin 875-125 Tablet] Fluticasone [Flonase] 1 spray NS QDAY #7 bottle 08/05/20 Unknown Rx Ketorolac [Toradol] 10 mg PO Q6H PRN #20 tablet 08/05/20 Unknown Rx Naproxen 500 mg PO BID #20 tablet 12/07/20 Unknown Rx Albuterol Mdi (or & Nicu Only) 2 puff IH QID PRN #8.5 gram 04/24/21 Unknown Rx [ProAir HFA Inhaler] Doxycycline Hyclate [Doxycycline 100 mg PO Q12HR 7 Days #14 tab 04/24/21 Unknown Rx Hyclate TAB] Prednisone [predniSONE 10 mg 10 mg PO .TAPER #1 tab.ds.pk 04/24/21 Unknown Rx (6-Day Pack, 21 Tabs)] Allergies Allergy/AdvReac Type Severity Reaction Status Date / Time grape Allergy Shortness Verified 11/29/19 13:03 of Breath ED Review of Systems ROS: Stated complaint: NOT FEELING WELL, COLD FOR COUPLE WKS Other details as noted in HPI Comment: All other systems reviewed and negative Constitutional: denies: chills, fever, malaise Respiratory: cough, wheezing Cardiovascular: denies: chest pain Gastrointestinal: denies: abdominal pain, vomiting ED Past Medical Hx - Past Medical History Previous Medical History?: No - Surgical History Past Surgical History?: No - Family History Family history: no significant - Social History Smoking Status: Current Every Day Smoker Substance Use Type: Alcohol - Medications Home Medications: Home Medications Medication Instructions Recorded Confirmed Last Taken Type Acetaminophen/Codeine [Tylenol 1 tab PO Q6H PRN #12 tab 08/08/19 Unknown Rx /Codeine # 3 tab] Ondansetron [Zofran Odt] 4 mg PO Q8HR PRN #20 tab.rapdis 08/08/19 Unknown Rx cephALEXin [Keflex] 500 mg PO Q12HR #10 cap 11/29/19 Unknown Rx Erythromycin [Erythromycin Ophth 1 strip OS QID 5 Days #1 tube 01/12/20 Unknown Rx Oint] Amoxicillin/Potassium Clav 1 each PO BID #20 tablet 08/05/20 Unknown Rx [Augmentin 875-125 Tablet] Fluticasone [Flonase] 1 spray NS QDAY #7 bottle 08/05/20 Unknown Rx Ketorolac [Toradol] 10 mg PO Q6H PRN #20 tablet 08/05/20 Unknown Rx Naproxen 500 mg PO BID #20 tablet 12/07/20 Unknown Rx Albuterol Mdi (or & Nicu Only) 2 puff IH QID PRN #8.5 gram 04/24/21 Unknown Rx [ProAir HFA Inhaler] Doxycycline Hyclate [Doxycycline 100 mg PO Q12HR 7 Days #14 tab 04/24/21 Unknown Rx Hyclate TAB] Prednisone [predniSONE 10 mg 10 mg PO .TAPER #1 tab.ds.pk 04/24/21 Unknown Rx (6-Day Pack, 21 Tabs)] ED Physical Exam - General Limitations: No Limitations General appearance: alert, in no apparent distress, other (Frequent cough no acute distress steady normal gait speaking full sentences without effort) - Head Head exam: Present: atraumatic, normocephalic - Eye Eye exam: Present: normal appearance - ENT ENT exam: Present: mucous membranes moist - Neck Neck exam: Present: normal inspection - Respiratory Respiratory exam: Present: normal lung sounds bilaterally. Absent: respiratory distress, wheezes, rales, rhonchi, chest wall tenderness, accessory muscle use, decreased breath sounds, prolonged expiratory - Cardiovascular Cardiovascular Exam: Present: regular rate, normal rhythm, normal heart sounds. Absent: systolic murmur, diastolic murmur, rubs, gallop - GI/Abdominal GI/Abdominal exam: Present: soft, normal bowel sounds. Absent: distended, tenderness, guarding, rebound - Extremities Exam Extremities exam: Present: normal inspection - Back Exam Back exam: Present: normal inspection - Neurological Exam Neurological exam: Present: alert, oriented X3 - Psychiatric Psychiatric exam: Present: normal affect, normal mood - Skin Skin exam: Present: warm, dry, intact, normal color. Absent: rash ED Course Vital Signs 04/24/21 17:18 Temperature 98.8 F Pulse Rate 109 H Respiratory 18 Rate Blood Pressure 137/81 [Right] O2 Sat by Pulse 100 Oximetry ED Medical Decision Making - Medical Decision Making Acute bronchitis: Considering symptoms for at least 3 weeks and tobacco abuse, antibiotics are indicated. I prescribed doxycycline, albuterol MDI, prednisone taper. Referred to outpatient internal medicine physician. Critical care attestation.: If time is entered above; I have spent that time in minutes in the direct care of this critically ill patient, excluding procedure time. ED Disposition Clinical Impression: Acute bronchitis, Tobacco dependence Disposition: 01 HOME / SELF CARE / HOMELESS Is pt being admited?: No Does the pt Need Aspirin: No Condition: Stable Instructions: Acute Bronchitis (ED), Acute Bronchitis, Adult, [id number], Josue ps to Quit Smoking, [id number] Prescriptions: Doxycycline Hyclate [Doxycycline Hyclate TAB] 100 mg PO Q12HR 7 Days #14 tab Prednisone [predniSONE 10 mg (6-Day Pack, 21 Tabs)] 10 mg PO .TAPER #1 tab.ds.pk Albuterol Mdi (or & Nicu Only) [ProAir HFA Inhaler] 2 puff IH QID PRN #8.5 gram PRN Reason: Shortness Of Breath Forms: Work/School Release Form(ED)
== END 2021-04-24 21:45 | disposition home or self-care (01) ==
LOC: ED 15:26
DX: J20.9 Acute bronchitis, unspecified (principal); F17.200 Nicotine dependence, unspecified, uncomplicated; Z91.018 Allergy to other foods; Z79.899 Other long term (current) drug therapy
CPT/HCPCS: 99281

== ENCOUNTER 2021-11-28 12:55 | Emergency (ER) | payer SELFPAY ==
[2021-11-28 13:40] VITALS: BP 137/86
--- NOTE | 2021-11-28 14:11 | Emergency Department Report ---
ED ENT HPI - General Chief complaint: Dental/Oral Stated complaint: DENTAL PAIN Time Seen by Provider: 11/28/21 13:18 Source: patient Mode of arrival: Ambulatory Limitations: No Limitations - History of Present Illness Initial comments: CC: "It's my wisdom tooth." HPI: This is a 36-year-old female with no significant past medical history who presents with an her right lower wisdom tooth. Mild to moderate in pain. Denies trouble with swallowing. Denies trouble with breathing. No fever. MD complaint: tooth pain -: Gradual, days(s) (Several days) Location: tooth # (32) Severity: moderate Consistency: constant Improves with: none Worsens with: none Context- Dental: history of dental caries - Related Data Previous Rx's Medication Instructions Recorded Last Taken Type Acetaminophen/Codeine [Tylenol 1 tab PO Q6H PRN #12 tab 08/08/19 Unknown Rx /Codeine # 3 tab] Ondansetron [Zofran Odt] 4 mg PO Q8HR PRN #20 tab.rapdis 08/08/19 Unknown Rx cephALEXin [Keflex] 500 mg PO Q12HR #10 cap 11/29/19 Unknown Rx Erythromycin [Erythromycin Ophth 1 strip OS QID 5 Days #1 tube 01/12/20 Unknown Rx Oint] Amoxicillin/Potassium Clav 1 each PO BID #20 tablet 08/05/20 Unknown Rx [Augmentin 875-125 Tablet] Fluticasone [Flonase] 1 spray NS QDAY #7 bottle 08/05/20 Unknown Rx Ketorolac [Toradol] 10 mg PO Q6H PRN #20 tablet 08/05/20 Unknown Rx Naproxen 500 mg PO BID #20 tablet 12/07/20 Unknown Rx Albuterol Mdi (or & Nicu Only) 2 puff IH QID PRN #8.5 gram 04/24/21 Unknown Rx [ProAir HFA Inhaler] Doxycycline Hyclate [Doxycycline 100 mg PO Q12HR 7 Days #14 tab 04/24/21 Unknown Rx Hyclate TAB] Prednisone [predniSONE 10 mg 10 mg PO .TAPER #1 tab.ds.pk 04/24/21 Unknown Rx (6-Day Pack, 21 Tabs)] Penicillin V Potassium 500 mg PO Q6H 10 Days #40 11/28/21 Unknown Rx Allergies Allergy/AdvReac Type Severity Reaction Status Date / Time grape Allergy Shortness Verified 11/28/21 13:41 of Breath ED Dental HPI - General Chief complaint: Dental/Oral Stated complaint: DENTAL PAIN Time Seen by Provider: 11/28/21 13:18 Source: patient Mode of arrival: Ambulatory Limitations: No Limitations - Related Data Previous Rx's Medication Instructions Recorded Last Taken Type Acetaminophen/Codeine [Tylenol 1 tab PO Q6H PRN #12 tab 08/08/19 Unknown Rx /Codeine # 3 tab] Ondansetron [Zofran Odt] 4 mg PO Q8HR PRN #20 tab.rapdis 08/08/19 Unknown Rx cephALEXin [Keflex] 500 mg PO Q12HR #10 cap 11/29/19 Unknown Rx Erythromycin [Erythromycin Ophth 1 strip OS QID 5 Days #1 tube 01/12/20 Unknown Rx Oint] Amoxicillin/Potassium Clav 1 each PO BID #20 tablet 08/05/20 Unknown Rx [Augmentin 875-125 Tablet] Fluticasone [Flonase] 1 spray NS QDAY #7 bottle 08/05/20 Unknown Rx Ketorolac [Toradol] 10 mg PO Q6H PRN #20 tablet 08/05/20 Unknown Rx Naproxen 500 mg PO BID #20 tablet 12/07/20 Unknown Rx Albuterol Mdi (or & Nicu Only) 2 puff IH QID PRN #8.5 gram 04/24/21 Unknown Rx [ProAir HFA Inhaler] Doxycycline Hyclate [Doxycycline 100 mg PO Q12HR 7 Days #14 tab 04/24/21 Unknown Rx Hyclate TAB] Prednisone [predniSONE 10 mg 10 mg PO .TAPER #1 tab.ds.pk 04/24/21 Unknown Rx (6-Day Pack, 21 Tabs)] Penicillin V Potassium 500 mg PO Q6H 10 Days #40 11/28/21 Unknown Rx Allergies Allergy/AdvReac Type Severity Reaction Status Date / Time grape Allergy Shortness Verified 11/28/21 13:41 of Breath ED Review of Systems ROS: Stated complaint: DENTAL PAIN Other details as noted in HPI Comment: All other systems reviewed and negative Constitutional: denies: chills, fever, malaise ENT: dental pain Respiratory: denies: cough, shortness of breath Cardiovascular: denies: chest pain, palpitations, dyspnea on exertion, orthopnea Gastrointestinal: denies: abdominal pain, nausea, vomiting Musculoskeletal: denies: back pain Skin: denies: rash, lesions ED Past Medical Hx - Past Medical History Previous Medical History?: No - Surgical History Past Surgical History?: No - Social History Smoking Status: Never Smoker Substance Use Type: None - Medications Home Medications: Home Medications Medication Instructions Recorded Confirmed Last Taken Type Acetaminophen/Codeine [Tylenol 1 tab PO Q6H PRN #12 tab 08/08/19 11/28/21 Unknown Rx /Codeine # 3 tab] Ondansetron [Zofran Odt] 4 mg PO Q8HR PRN #20 tab.rapdis 08/08/19 11/28/21 Unknown Rx cephALEXin [Keflex] 500 mg PO Q12HR #10 cap 11/29/19 11/28/21 Unknown Rx Erythromycin [Erythromycin Ophth 1 strip OS QID 5 Days #1 tube 01/12/20 11/28/21 Unknown Rx Oint] Amoxicillin/Potassium Clav 1 each PO BID #20 tablet 08/05/20 11/28/21 Unknown Rx [Augmentin 875-125 Tablet] Fluticasone [Flonase] 1 spray NS QDAY #7 bottle 08/05/20 11/28/21 Unknown Rx Ketorolac [Toradol] 10 mg PO Q6H PRN #20 tablet 08/05/20 11/28/21 Unknown Rx Naproxen 500 mg PO BID #20 tablet 12/07/20 11/28/21 Unknown Rx Albuterol Mdi (or & Nicu Only) 2 puff IH QID PRN #8.5 gram 04/24/21 11/28/21 Unknown Rx [ProAir HFA Inhaler] Doxycycline Hyclate [Doxycycline 100 mg PO Q12HR 7 Days #14 tab 04/24/21 11/28/21 Unknown Rx Hyclate TAB] Prednisone [predniSONE 10 mg 10 mg PO .TAPER #1 tab.ds.pk 04/24/21 11/28/21 Unknown Rx (6-Day Pack, 21 Tabs)] Penicillin V Potassium 500 mg PO Q6H 10 Days #40 11/28/21 Unknown Rx ED Physical Exam - General Limitations: No Limitations General appearance: alert, in no apparent distress, other (Appears well, no facial swelling, normal voice,) - Head Head exam: Present: atraumatic, normocephalic - Eye Eye exam: Present: normal appearance - ENT ENT exam: Present: mucous membranes moist, other (Decayed tooth #32 with minimal surrounding gum swelling) - Neck Neck exam: Present: normal inspection, full ROM - Respiratory Respiratory exam: Present: normal lung sounds bilaterally. Absent: respiratory distress, wheezes, rales, rhonchi, stridor - Cardiovascular Cardiovascular Exam: Present: regular rate, normal rhythm, normal heart sounds. Absent: systolic murmur, diastolic murmur, rubs, gallop - GI/Abdominal GI/Abdominal exam: Present: soft, normal bowel sounds. Absent: distended, tenderness, guarding, rebound - Extremities Exam Extremities exam: Present: normal inspection - Back Exam Back exam: Present: normal inspection - Neurological Exam Neurological exam: Present: alert, oriented X3 - Psychiatric Psychiatric exam: Present: normal affect, normal mood - Skin Skin exam: Present: warm, dry, intact, normal color. Absent: rash ED Course Vital Signs 11/28/21 11/28/21 11/28/21 13:18 13:37 13:39 Temperature 98.4 F 98.8 F 98.8 F Pulse Rate 84 78 78 Respiratory 16 20 20 Rate Blood Pressure 137/86 Blood Pressure 133/82 137/68 [Left] O2 Sat by Pulse 97 99 99 Oximetry ED Medical Decision Making - Medical Decision Making Infected dental caries: Prescribed penicillin. I provided referral to dental clinic. Critical care attestation.: If time is entered above; I have spent that time in minutes in the direct care of this critically ill patient, excluding procedure time. ED Disposition Clinical Impression: Infected dental caries Disposition: HOME / SELF CARE / HOMELESS Is pt being admited?: No Does the pt Need Aspirin: No Condition: Stable Instructions: Dental Abscess, [id number] Prescriptions: Penicillin V Potassium 500 mg PO Q6H 10 Days #40
== END 2021-11-28 14:27 | disposition home or self-care (01) ==
LOC: ED 12:55
DX: K02.9 Dental caries, unspecified (principal); Z91.018 Allergy to other foods; Z79.899 Other long term (current) drug therapy
CPT/HCPCS: 99282